=== PATIENT | female | born 1985 | race Caucasian/White ===

== ENCOUNTER 2020-05-12 14:04 | Emergency (ER) | payer OTHER, SELFPAY ==
[2020-05-12 14:04] VITALS: BP 142/81; PULSE 80; RESP 16; TEMP 36.9; O2SAT 98; BMI 42.9
[2020-05-12 14:17] VITALS: BP 142/81; PULSE 80; RESP 20; O2SAT 98
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
[2020-05-12] MEDS: ketorolac 30 mg/mL INJ IVP (15:12)
[2020-05-12 15:26] VITALS: BP 136/89; PULSE 79; RESP 20; O2SAT 96
== END 2020-05-12 15:26 | disposition home or self-care (01) ==
LOC: ER 15:15
PROVIDERS: Emergency Provider Family Medicine
DX: T23.052A Burn of unspecified degree of left palm, initial encounter (principal); S20.211A Contusion of right front wall of thorax, initial encounter; W22.11XA Striking against or struck by driver side automobile airbag, initial encounter; V89.2XXA Person injured in unspecified motor-vehicle accident, traffic, initial encounter
CPT/HCPCS: 12345; 71046; 71100; 96374; 96375; 99283; J1885